=== PATIENT | male | born 1985 | race Hispanic/Latino ===

== ENCOUNTER 2018-05-27 23:09 | Emergency (ER) | payer SELFPAY ==
[~2018-05-27] VITALS: Ht 170.2 cm; Wt 102.1 kg
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
== END 2018-05-28 01:42 | disposition home or self-care (01) ==
LOC: FSED 23:09
DX: M54.2 Cervicalgia (principal); S16.1XXA Strain of muscle, fascia and tendon at neck level, initial encounter; M54.6 Pain in thoracic spine; V57.5XXA Driver of pick-up truck or van injured in collision with fixed or stationary object in traffic accident, initial encounter; Y92.89 Other specified places as the place of occurrence of the external cause; I10 Essential (primary) hypertension
CPT/HCPCS: 72050; 72072; 72125; 99283